=== PATIENT | female | born 1935 | race Caucasian/White ===

== ENCOUNTER → 2019-03-26 | Outpatient (CLI) | payer MEDICARE, OTHER ==
[~2019-03-26] MED LIST: CALCIUM 500500 MG; CYMBALTA 30MG30 MG; DITROPAN XL10 MG; DUO-KAPS1 CAP; MAREPA1200 MG; NEURONTIN300 MG/CAP; PREDNISONE 5MG5 MG; PRINZIDE 25 MG-1 TAB; URSO FORTE500 MG; VITAMIN D2000 I1; VITAMIN E 400 U4001; ZINC NATURAL50 MG; ZOCOR 20MG20 MG
== END ==
LOC: COL.RAD 14:27
DX: M19.072 Primary osteoarthritis, left ankle and foot (principal); M20.12 Hallux valgus (acquired), left foot; M24.871 Other specific joint derangements of right ankle, not elsewhere classified; I70.735 Atherosclerosis of other type of bypass graft(s) of the right leg with ulceration of other part of foot; I70.74 Atherosclerosis of other type of bypass graft(s) of the left leg with ulceration